=== PATIENT | male | born 1985 | race American Indian/Alaskan Native ===

== ENCOUNTER 2020-06-26 09:08 | Emergency (ER) | payer SELFPAY ==
--- NOTE | 2020-06-26 09:17 | Event Note ---
ED Screening Note Date of service: 06/26/20 Time: 09:15 ED Screening Note: 34-year-old male presents the emergency department chief complaint 3 days of left-sided lower and upper abdominal pain with associated nausea and constipation. Patient reports he feels as if it is hard to breathe. This initial assessment/diagnostic orders/clinical plan/treatment(s) is/are subject to change based on patients health status, clinical progression and re- assessment by fellow clinical providers in the ED. Further treatment and workup at subsequent clinical providers discretion. Patient/guardian urged not to elope from the ED as their condition may be serious if not clinically assessed and managed. Initial orders include: CBC, CMP, lipase, urinalysis, chest x-ray, EKG
--- NOTE | 2020-06-26 09:43 | XRay Report ---
CHEST 2 VIEWS INDICATION / CLINICAL INFORMATION: pain. COMPARISON: None available. FINDINGS: SUPPORT DEVICES: None. HEART / MEDIASTINUM: No significant abnormality. LUNGS / PLEURA: No significant pulmonary or pleural abnormality. No pneumothorax. ADDITIONAL FINDINGS: No significant additional findings. IMPRESSION: 1. No acute findings. Signer Name: Jw Mixon MD Signed: 06/26/2020 9:39 AM Workstation Name: [id number]
--- NOTE | 2020-06-26 09:45 | Emergency Department Report ---
ED General Adult HPI - General Chief complaint: Abdominal Pain Stated complaint: CHEST PAIN; ABD PAIN PUI?: No Time Seen by Provider: 06/26/20 09:43 Source: patient, RN notes reviewed Mode of arrival: Ambulatory Limitations: No Limitations - History of Present Illness Initial comments: The patient was evaluated in the emergency department for symptoms described in the history of present illness. He/she was evaluated in the context of the global COVID-19 pandemic, which necessitated consideration that the patient might be at risk for infection with the virus that causes COVID-19. Institutional protocols and algorithms that pertain to the evaluation of patients at risk for COVID-19 are in a state of rapid change based on information released by regulatory bodies including the CDC and federal and state organizations. These policies and algorithms were followed during the patient's care in the emergency department. Please note that these policies, procedures and recommendations changed on a rapid basis. The patient is a 34-year-old gentleman. He is not known to myself previously. He has a history of chronic and frequent cannabis use. He presents to the ER with complaint of diffuse abdominal cramping, nausea and vomiting. His symptoms get better if he takes a hot bath or hot shower. No fever. No loss of taste or smell. No diarrhea. No urinary symptoms. No testicular pain. He also describes left-sided chest pressure, which does not radiate to the back, arms or neck. Denies exertional shortness of breath, and diaphoresis. Denies travel, surgery, leg pain, leg swelling, DVT and pulmonary embolism risk factors. Left-sided chest pressure intermittent over the past 24 hours. Abdominal cramping present for the past 24 to 36 hours. -: Gradual, days(s) Location: chest, abdomen Radiation: abdomen (Abdominal cramping radiates diffuse) Quality: aching Consistency: constant Improves with: other (Hot shower) Worsens with: eating - Related Data Previous Rx's Medication Instructions Recorded Last Taken Type Famotidine [Pepcid] 20 mg PO BID #60 tablet 06/26/20 Unknown Rx Sandra Root [Sandra] 250 mg PO QID PRN #30 capsule 06/26/20 Unknown Rx Metoclopramide [Reglan] 10 mg PO QID PRN #30 tablet 06/26/20 Unknown Rx Promethazine [Phenergan SUPPOS] 50 mg KS Q6H PRN #30 supp.rect 06/26/20 Unknown Rx Allergies Allergy/AdvReac Type Severity Reaction Status Date / Time No Known Allergies Allergy Unverified 06/26/20 09:15 ED Review of Systems ROS: Stated complaint: CHEST PAIN; ABD PAIN Other details as noted in HPI Constitutional: malaise. denies: fever Eyes: denies: eye discharge ENT: denies: congestion Respiratory: denies: cough Cardiovascular: chest pain Gastrointestinal: abdominal pain, nausea, vomiting Genitourinary: denies: dysuria, testicular pain Musculoskeletal: denies: back pain, myalgia Neurological: weakness Psychiatric: anxiety Hematological/Lymphatic: denies: easy bleeding ED Past Medical Hx - Past Medical History Previous Medical History?: Yes Hx Hypertension: Yes - Surgical History Past Surgical History?: No - Social History Smoking Status: Never Smoker Substance Use Type: None - Medications Home Medications: Home Medications Medication Instructions Recorded Confirmed Last Taken Type Famotidine [Pepcid] 20 mg PO BID #60 tablet 06/26/20 Unknown Rx Sandra Root [Sandra] 250 mg PO QID PRN #30 capsule 06/26/20 Unknown Rx Metoclopramide [Reglan] 10 mg PO QID PRN #30 tablet 06/26/20 Unknown Rx Promethazine [Phenergan SUPPOS] 50 mg KS Q6H PRN #30 supp.rect 06/26/20 Unknown Rx ED Physical Exam - General Limitations: No Limitations General appearance: alert, anxious, in distress - Head Head exam: Present: atraumatic, normocephalic - Eye Eye exam: Present: normal appearance, EOMI. Absent: nystagmus - ENT ENT exam: Present: normal exam, normal orophraynx, mucous membranes moist, normal external ear exam - Neck Neck exam: Present: normal inspection, full ROM. Absent: tenderness, meningismus - Respiratory Respiratory exam: Present: normal lung sounds bilaterally, chest wall tenderness. Absent: respiratory distress, wheezes, rales, rhonchi, stridor - Cardiovascular Cardiovascular Exam: Present: regular rate, normal rhythm, normal heart sounds. Absent: bradycardia, tachycardia, irregular rhythm, systolic murmur, diastolic murmur, rubs, gallop - GI/Abdominal GI/Abdominal exam: Present: soft, normal bowel sounds. Absent: distended, tenderness, guarding, rebound, rigid, pulsatile mass - Rectal Rectal exam: Present: deferred - Extremities Exam Extremities exam: Present: normal inspection, full ROM, other (2+ pulses noted in the bilateral upper and lower extremities. There is no palpable cord. negative Homans sign. Muscular compartments are soft. The pelvis is stable.). Absent: pedal edema, calf tenderness - Back Exam Back exam: Present: normal inspection, full ROM. Absent: tenderness, CVA tenderness (R), CVA tenderness (L), paraspinal tenderness, vertebral tenderness - Neurological Exam Neurological exam: Present: alert, normal gait, other (No facial droop. Tongue midline. Extraocular movements intact bilaterally. Facial sensation intact to light touch in V1, V2, V3 distribution bilaterally. 5 and a 5 strength in 4 extremities. Sensation intact to light touch in 4 extremities.). Absent: motor sensory deficit - Psychiatric Psychiatric exam: Present: anxious - Skin Skin exam: Present: warm, dry, intact, normal color. Absent: rash ED Course Vital Signs 06/26/20 09:15 Temperature 99.6 F Pulse Rate 98 H Respiratory 18 Rate Blood Pressure 138/95 O2 Sat by Pulse 96 Oximetry - Reevaluation(s) Reevaluation #1: 06/26/20 10:22 For mental diagnosis, including but not limited to: Constipation, cannabinoid hyperemesis syndrome, costochondritis Assessment and plan: 34-year-old gentleman who is a frequent cannabis user, who currently smells of cannabis, but clinically sober at this time, with probable cannabinoid hyperemesis syndrome, manifest by abdominal cramping, nausea, vomiti ng, relief with hot bath/hot shower. When distracted, abdomen soft and benign, without rebound, guarding or peritoneal signs. We will medicate with fluids, Pepcid, and haloperidol. Patient strongly advised to discontinue cannabis consumption. He denies testicular pain and urinary symptoms. EKG age appropriate variant. Not currently tachycardic, tachypneic or hypoxic, denies pulmonary embolism, DVT risk factors, low risk by Wells criteria and PERC negative. Equal pulses in the upper and lower extremities, no pulsatile abdominal mass, unremarkable mediastinum demonstrated on chest x-ray, aortic pathology unlikely. Very low risk for major adverse cardiac event as per heart score. Symptoms present for greater than 8 hours, therefore, myocardial infarction may be excluded with 1 set of negative troponins, as per the [employer] clinical policy. 06/26/20 11:17 No active vomiting. Belly soft on repeat exam. Laboratory studies reviewed and appreciated. Patient requesting to be discharged. Suitable for discharge at this time. ED Medical Decision Making - Lab Data Result diagrams: 06/26/20 09:54 06/26/20 09:54 Vital Signs 06/26/20 09:15 Temperature 99.6 F Pulse Rate 98 H Respiratory 18 Rate Blood Pressure 138/95 O2 Sat by Pulse 96 Oximetry Lab Results 06/26/20 Range/Units 09:54 WBC 12.1 H (4.5-11.0) K/mm3 RBC 4.99 (3.65-5.03) M/mm3 Hgb 16.5 H (11.8-15.2) gm/dl Hct 47.9 H (35.5-45.6) % MCV 96 H (84-94) fl MCH 33 H (28-32) pg MCHC 35 H (32-34) % RDW 12.5 L (13.2-15.2) % Plt Count 174 (140-440) K/mm3 Lymph % (Auto) 12.9 L (13.4-35.0) % [place] % (Auto) 9.0 H (0.0-7.3) % Eos % (Auto) 0.2 (0.0-4.3) % Baso % (Auto) 0.5 (0.0-1.8) % Lymph # (Auto) 1.6 (1.2-5.4) K/mm3 [place] # (Auto) 1.1 H (0.0-0.8) K/mm3 Eos # (Auto) 0.0 (0.0-0.4) K/mm3 Baso # (Auto) 0.1 (0.0-0.1) K/mm3 Seg Neutrophils % 77.4 H (40.0-70.0) % Seg Neutrophils # 9.4 H (1.8-7.7) K/mm3 Lab Results 06/26/20 06/26/20 06/26/20 Range/Units 09:54 09:54 10:05 WBC 12.1 H (4.5-11.0) K/mm3 RBC 4.99 (3.65-5.03) M/mm3 Hgb 16.5 H (11.8-15.2) gm/dl Hct 47.9 H (35.5-45.6) % MCV 96 H (84-94) fl MCH 33 H (28-32) pg MCHC 35 H (32-34) % RDW 12.5 L (13.2-15.2) % Plt Count 174 (140-440) K/mm3 Lymph % (Auto) 12.9 L (13.4-35.0) % [place] % (Auto) 9.0 H (0.0-7.3) % Eos % (Auto) 0.2 (0.0-4.3) % Baso % (Auto) 0.5 (0.0-1.8) % Lymph # (Auto) 1.6 (1.2-5.4) K/mm3 [place] # (Auto) 1.1 H (0.0-0.8) K/mm3 Eos # (Auto) 0.0 (0.0-0.4) K/mm3 Baso # (Auto) 0.1 (0.0-0.1) K/mm3 Seg Neutrophils % 77.4 H (40.0-70.0) % Seg Neutrophils # 9.4 H (1.8-7.7) K/mm3 Sodium 135 L (137-145) mmol/L Potassium 4.4 (3.6-5.0) mmol/L Chloride 97.4 L (98-107) mmol/L Carbon Dioxide 27 (22-30) mmol/L Anion Gap 15 mmol/L BUN 32 H (9-20) mg/dL Creatinine 1.2 (0.8-1.3) mg/dL Estimated GFR > 60 ml/min BUN/Creatinine Ratio 27 % Glucose 121 H (75-100) mg/dL Calcium 10.2 (8.4-10.2) mg/dL Magnesium 2.80 H (1.7-2.3) mg/dL Total Bilirubin 0.40 (0.1-1.2) mg/dL AST 20 (5-40) units/L ALT 17 (7-56) units/L Alkaline Phosphatase 99 (35-129) units/L Total Creatine Kinase 181 H (55-170) units/L Troponin T < 0.010 (0.00-0.029) ng/mL Total Protein 8.8 H (6.3-8.2) g/dL Albumin 5.5 H (3.9-5) g/dL Albumin/Globulin Ratio 1.7 % Lipase 20 (13-60) units/L Urine Color (Yellow) Urine Turbidity (Clear) Urine pH (5.0-7.0) Ur Specific [place] (1.003-1.030) Urine Protein (Negative) mg/dL Urine Glucose (UA) (Negative) mg/dL Urine Ketones (Negative) mg/dL Urine Blood (Negative) Urine Nitrite (Negative) Urine Bilirubin (Negative) Urine Urobilinogen (<2.0) mg/dL Ur Leukocyte Esterase (Negative) Urine WBC (Auto) (0.0-6.0) /HPF Urine RBC (Auto) (0.0-6.0) /HPF U Epithel Cells (Auto) (0-13.0) /HPF Hyaline Casts /LPF Urine Mucus /HPF 06/26/20 Range/Units Unknown WBC (4.5-11.0) K/mm3 RBC (3.65-5.03) M/mm3 Hgb (11.8-15.2) gm/dl Hct (35.5-45.6) % MCV (84-94) fl MCH (28-32) pg MCHC (32-34) % RDW (13.2-15.2) % Plt Count (140-440) K/mm3 Lymph % (Auto) (13.4-35.0) % [place] % (Auto) (0.0-7.3) % Eos % (Auto) (0.0-4.3) % Baso % (Auto) (0.0-1.8) % Lymph # (Auto) (1.2-5.4) K/mm3 [place] # (Auto) (0.0-0.8) K/mm3 Eos # (Auto) (0.0-0.4) K/mm3 Baso # (Auto) (0.0-0.1) K/mm3 Seg Neutrophils % (40.0-70.0) % Seg Neutrophils # (1.8-7.7) K/mm3 Sodium (137-145) mmol/L Potassium (3.6-5.0) mmol/L Chloride (98-107) mmol/L Carbon Dioxide (22-30) mmol/L Anion Gap mmol/L BUN (9-20) mg/dL Creatinine (0.8-1.3) mg/dL Estimated GFR ml/min BUN/Creatinine Ratio % Glucose (75-100) mg/dL Calcium (8.4-10.2) mg/dL Magnesium (1.7-2.3) mg/dL Total Bilirubin (0.1-1.2) mg/dL AST (5-40) units/L ALT (7-56) units/L Alkaline Phosphatase (35-129) units/L Total Creatine Kinase (55-170) units/L Troponin T (0.00-0.029) ng/mL Total Protein (6.3-8.2) g/dL Albumin (3.9-5) g/dL Albumin/Globulin Ratio % Lipase (13-60) units/L Urine Color Yellow (Yellow) Urine Turbidity Clear (Clear) Urine pH 5.0 (5.0-7.0) Ur Specific [place] 1.028 (1.003-1.030) Urine Protein 100 mg/dl (Negative) mg/dL Urine Glucose (UA) Neg (Negative) mg/dL Urine Ketones Neg (Negative) mg/dL Urine Blood Sm (Negative) Urine Nitrite Neg (Negative) Urine Bilirubin Neg (Negative) Urine Urobilinogen < 2.0 (<2.0) mg/dL Ur Leukocyte Esterase Neg (Negative) Urine WBC (Auto) 2.0 (0.0-6.0) /HPF Urine RBC (Auto) 7.0 (0.0-6.0) /HPF U Epithel Cells (Auto) < 1.0 (0-13.0) /HPF Hyaline Casts 1 /LPF Urine Mucus 2+ /HPF - EKG Data -: EKG Interpreted by [place] EKG shows normal: sinus rhythm Rate: normal - EKG Data When compared to previous EKG there are: previous EKG unavailable 06/26/20 10:22 Sinus rhythm, bradycardia, 59 bpm. Normal axis, normal intervals, high left ventricular voltage. Abnormal EKG. Age appropriate variant. Not a STEMI. - Radiology Data Radiology results: pending, report reviewed, image reviewed X-ray the chest is negative for acute findings Critical care attestation.: If time is entered above; I have spent that time in minutes in the direct care of this critically ill patient, excluding procedure time. ED Disposition Clinical Impression: Diffuse abdominal pain, Chest wall pain, Marijuana use Disposition: DC-01 TO HOME OR SELFCARE Is pt being admited?: No Does the pt Need Aspirin: No Condition: Good Instructions: Cannabis Use Disorder, Chest Pain (ED) Additional Instructions: We recommend that the patient discontinue marijuana consumption immediately. The patient most likely has cannabinoid hyperemesis syndrome. Treatment is to discontinue marijuana consumption. Marijuana is fat-soluble, and stays around in fatty tissue. Therefore, it typically takes 3 to 6 weeks after last ingestion of cannabis/marijuana for symptoms to completely resolved. Patient may take a hot bath or hot shower as often as he likes. Please take the prescribed pain medication, nausea medications as needed and directed. Avoid consumption of Motrin, ibuprofen, Naprosyn, Aleve, alcohol, heavy and spicy foods. Follow-up with a primary care doctor within the next 7 to 10 days. Patient may use any kind of edible quality hot sauce, such as Tabasco, no particular brand is recommended, and rubs/apply to his anterior abdominal wall whenever he develops pain like this. Rubbing hot sauce over the anterior abdominal wall may occasionally assist with relief of symptoms. Please return to the emergency room right away with new pain, worsened pain, migration of pain, projectile vomiting, change in mental status, confusion, inability to tolerate liquid feeds, new, worsened or different symptoms not present on the initial emergency room evaluation. Take the Reglan medication orally as needed for nausea and vomiting, use the Phenergan suppository as needed for intractable nausea, vomiting. Prescriptions: Sandra Root [Sandra] 250 mg PO QID PRN #30 capsule PRN Reason: Nausea Famotidine [Pepcid] 20 mg PO BID #60 tablet Promethazine [Phenergan SUPPOS] 50 mg [place] Q6H PRN #30 supp.rect PRN Reason: Nausea Metoclopramide [Reglan] 10 mg PO QID PRN #30 tablet PRN Reason: Nausea Referrals: MANUEL KAHN MD [Staff Physician] - 3-5 Days [facility] [Provider Group] - 3-5 Days [facility] [Provider Group] - 3-5 Days Heart Score - HEART Score History: Slightly suspicious EKG: Non-specific Age: < 45 Risk factors: No known risk factors Troponin: < normal limit HEART Score: 1 - Critical Actions Critical Actions: 0-3 pts:0.9-1.7%risk of adverse cardiac event.Candidate for discharge
[2020-06-26] MEDS ORDERED: FAMOTIDINE 20 MG/2 ML INJ IV ONE (10:05)
[2020-06-26] MEDS ORDERED: HALOPERIDOL LACTATE 5 MG/1 ML INJ IM ONE (10:05)
[2020-06-26 10:09] LABS: Basophils # (Auto) 0.1 K/mm3 (0.0-0.1); Basophils % (Auto) 0.5 % (0.0-1.8); Eosinophils % (Auto) 0.2 % (0.0-4.3); Hematocrit 47.9 % (35.5-45.6); Hemoglobin 16.5 gm/dl (11.8-15.2); Lymphocytes # (Auto) 1.6 K/mm3 (1.2-5.4); Lymphocytes % (Auto) 12.9 % (13.4-35.0); Mean Corpuscular HGB Conc 35 % (32-34); Mean Corpuscular Volume 96 fl (84-94); Monocytes # (Auto) 1.1 K/mm3 (0.0-0.8); Platelet Count 174 K/mm3 (140-440); Red Blood Count 4.99 M/mm3 (3.65-5.03); Red Cell Distribution Width 12.5 % (13.2-15.2)
[2020-06-26 10:32] LABS: Alanine Aminotransferase 17 units/L (7-56); Albumin 5.5 g/dL (3.9-5); BUN/Creatinine Ratio 27; Blood Urea Nitrogen 32 mg/dL (9-20); Calcium 10.2 mg/dL (8.4-10.2); Hemolysis Index 8
[2020-06-26] MEDS ORDERED: D5W/0.45% NACL 1,000 ML IV SCH (11:00)
[2020-06-26 11:02] LABS: Bilirubin,Urine NEG (Negative); Blood,Urine SM (Negative); Color,Urine Yellow (Yellow); Hyaline Casts,Urine 1 /LPF; Mucus,Urine 2+ /HPF; Urobilinogen,Urine < 2.0 mg/dL (<2.0)
[2020-06-26 11:27] VITALS: BP 125/87
== END 2020-06-26 11:31 | disposition home or self-care (01) ==
LOC: ED 09:08
DX: R10.84 Generalized abdominal pain (principal); R11.2 Nausea with vomiting, unspecified; R07.89 Other chest pain; I10 Essential (primary) hypertension; Z79.899 Other long term (current) drug therapy
CPT/HCPCS: 36415; 71046; 80053; 81001; 82550; 83690; 83735; 84484; 85025; 93005; 96361; 96372; 96374; 99283; J1630